=== PATIENT | female | born 1985 | race Caucasian/White ===

== ENCOUNTER 2020-04-21 11:52 | Observation (INO) | payer MEDICAID ==
[~2020-04-21] VITALS: Ht 162.6 cm; Wt 49.9 kg
[2020-04-21] MEDS ORDERED: PREN-52 MT (13:15)
[2020-04-21] MEDS: LACTATED RINGERS 1,000 ML IV SCH ×2 (14:00→15:54)
[2020-04-21 14:14] LABS: CLARITY URINE CLEAR (CLEAR); COLOR URINE YELLOW (YELLOW); KETONES URINE NEGATIVE (NEGATIVE); LEUKOCYTE ESTERASE URINE 3+ (NEGATIVE); NITRITE URINE NEGATIVE (NEGATIVE); OCCULT BLOOD URINE NEGATIVE (NEGATIVE); PROTEIN URINE NEGATIVE (NEGATIVE); SPECIFIC GRAVITY URINE 1.008 (1.005-1.030); UROBILINOGEN URINE 0.2 E.U./dL (0.2-1.0)
[2020-04-21] MEDS ORDERED: CEFAZOLIN 2,000 MG in DEXT 5% WATER 100 ML IV NR (15:30)
== END 2020-04-21 17:00 | disposition home or self-care (01) ==
LOC: 8 EST LDRP 11:52
PROVIDERS: ADMIT Obstetrics & Gynecology; ATTEND Obstetrics & Gynecology
DX: Z34.92 Encounter for supervision of normal pregnancy, unspecified, second trimester (principal); Z3A.27 27 weeks gestation of pregnancy; Z79.899 Other long term (current) drug therapy
CPT/HCPCS: 59025; 76805; 76818; 81003; 87086; 96361; 96365; G0378; J0690; J7060; 99281